=== PATIENT | male | born 1930 | race Caucasian/White ===

== ENCOUNTER 2017-10-07 06:43 | Emergency (ER) | payer MEDICARE, BC ==
[~2017-10-07 06:43] MED LIST: EPINEPHrine 1:10,000 1 MG/10 ML Syringe IVPUSH PRN
[2017-10-07] MEDS ORDERED: EPINEPHrine 1:10,000 1 MG/10 ML Syringe ONE (06:56)
[2017-10-07 07:10] LABS: CHLORIDE,CL 101 mEq/L (98-106); SODIUM,NA 136 mEq/L (136-145)
--- NOTE | 2017-10-07 07:28 | EDM.PDOC ---
ED HPI GENERAL MEDICAL PROBLEM - General Chief Complaint: General Stated Complaint: code Time Seen by Provider: 10/07/17 06:43 Source of Information: Reports: EMS, Family History Limitations: Reports: Altered Mental Status - History of Present Illness INITIAL COMMENTS - FREE TEXT/NARRATIVE: Salvatore is a 87 year old male who presents to the ED via [facility] with CPR in progress. Family report he got up this morning, got dressed for work. then reports he complained that he was not feeling well. She reports following this she heard weird breathing and went to the room to find him collapsed on the floor. Bystanders did initiate CPR. EMS was called. At their arrival, he reportedly had some agonal breathing, but eventually no pulse so CPR was continued. At the time of ED arrival, Byron is in place and he has a Ryne airway with adequate breath sounds. Patients pupils are fixed. Prior to arrival he had not received any medications. Code was ran per protocol with assistance of Eduardo. See their documentation for timing of med administration and pulse checks etc. Onset: Sudden Onset Date: 10/07/17 Onset Time: 06:22 Treatments [employer]: Reports: See EMS Report - Related Data Allergies Allergy/AdvReac Type Severity Reaction Status Date / Time Sulfa (Sulfonamide Allergy Rash Verified 10/07/17 07:29 Antibiotics) Home Meds: Home Meds Aspirin [Halfprin] 81 mg PO DAILY 04/12/15 [History] Losartan Potassium 100 mg PO DAILY 04/12/15 [History] Metoprolol Tartrate 50 mg PO BID 04/12/15 [History] Tamsulosin HCl [Flomax] 0.4 mg PO DAILY 04/12/15 [History] hydrALAZINE HCl [Hydralazine HCl] 25 mg PO BID 04/12/15 [History] ED ROS GENERAL - Review of Systems Review Of Systems: Unable To Obtain ED EXAM, GENERAL - Physical Exam Exam: See Below General Appearance: Other (CPR in progress, Patient pale, no signs of live, no spontaneous breathing or heart beat ) Course - Vital Signs Last Recorded V/S: Last Vital Signs Temp 98.2 F 10/07/17 07:34 Pulse 0 L 10/07/17 07:34 Resp 0 L 10/07/17 07:34 BP Pulse Ox 95 10/07/17 07:34 - Orders/Labs/Meds Labs: Laboratory Tests 10/07/17 10/07/17 10/07/17 Range/Units 06:54 06:54 06:54 WBC 10.5 H (5.0-10.0) 10^3/uL RBC 4.30 L (4.50-6.00) 10^6/uL Hgb 13.2 L (14.0-18.0) g/dL Hct 40.9 (40.0-54.0) % MCV 95.1 H (82.0-94.0) fL MCH 30.7 (27.0-32.0) pg MCHC 32.3 L (33.0-38.0) g/dL RDW Coeff of Arash 12.8 (11.0-15.0) % Plt Count 209 (150-400) 10^3/uL Add Manual Diff Yes Neutrophils % (Manual) 33 L (35-85) % Lymphocytes % (Manual) 56 H (21-55) % Monocytes % (Manual) 9 (2-12) % Eosinophils % (Manual) 2 (0-5) % Absolute Neutrophils 3.47 (1.80-7.00) 10^3/uL Lymphocytes # (Manual) 5.88 H (1.00-4.80) 10^3/uL Monocytes # (Manual) 0.95 H (0.00-0.80) 10^3/uL Eosinophils # (Manual) 0.21 (0.00-0.45) 10^3/uL PT 10.7 (9.7-12.3) SEC INR 1.03 (0.92-1.18) APTT 32.7 H (23.2-32.3) SEC D-Dimer, Quantitative 9.13 H (0.00-0.50) Sodium 136 (136-145) mEq/L Potassium 3.5 D (3.5-5.0) mEq/L Chloride 101 (98-106) mEq/L Carbon Dioxide 29 (21-32) mmol/L BUN 21 H (7-18) mg/dL Creatinine 1.8 H (0.7-1.3) mg/dL Est Cr Clr Drug Dosing TNP Estimated GFR (MDRD) 36 L (>=60) mL/min Glucose 334 H* D (75-99) mg/dL Calcium 9.1 (8.4-10.1) mg/dL Lactate Dehydrogenase 304 H (100-190) U/L Creatine Kinase 80 (35-232) U/L Troponin I 0.024 (0.00-0.06) ng/mL Meds: Medications Discontinued Medications Generic Name Dose Route Start Last Admin Trade Name Freq PRN Reason Stop Dose Admin Epinephrine HCl Confirm 10/07/17 06:56 Epinephrine 1:10,000 Administered 10/07/17 06:57 Dose 1 mg .ROUTE .STK-MED ONE Epinephrine HCl 1 mg 10/07/17 06:30 Epinephrine 1:10,000 IVPUSH ONETIME PRN Arrhythmia - Re-Assessments/Exams Free Text/Narrative Re-Assessment/Exam: PLEASE SEE NURSES NOTES FOR PMH, PSH, SH, AND FH. Please see [facility] charting for code documentation. Throughout entire Code, patient remains in PEA. He did receive epinephrine throughout code. Discussed with family that after code this long, in the presence of fixed and dilated pupils chance of complete recovery very unlikely. Ended code with time of expiration 07. Family in agreement and were present at time of expiration. Departure - Departure Time of Disposition: 07:06 Disposition: 20 Preliminary Cause of *Q: Cardiac Arrest Clinical Impression: Cardiac arrest - Discharge Information *PRESCRIPTION DRUG MONITORING PROGRAM REVIEWED*: Not Applicable *COPY OF PRESCRIPTION DRUG MONITORING REPORT IN PATIENT KERRY: Not Applicable Referrals: PCP,None [Primary Care Provider] - Forms: ED Department Discharge
== END 2017-10-07 08:20 | disposition expired ==
LOC: CC.ED 06:43
DX: I46.9 Cardiac arrest, cause unspecified (principal); Z79.899 Other long term (current) drug therapy; Z88.2 Allergy status to sulfonamides; Z79.82 Long term (current) use of aspirin
CPT/HCPCS: 36415; 80048; 82550; 83615; 84484; 85025; 85379; 85610; 85730; 92950; 96374; 99283; 99285